=== PATIENT | male | born 1940 | race Two or more races ===

== ENCOUNTER 2021-08-29 17:59 | Inpatient (IN) | payer MEDICARE, OTHER ==
[~2021-08-29] VITALS: Ht 210.8 cm; Wt 90.3 kg
[~2021-08-29 17:59] MED LIST: LISI2.5T47; WARF2TAB
[2021-08-29] MEDS ORDERED: cefTRIAXone 1GM/50ML D5W 50 ML IV ONE (19:45)
[2021-08-29] MEDS ORDERED: methylPREDNISolone SOD SUCC 125 MG/2 ML VL IV ONE (19:45)
[2021-08-29] MEDS ORDERED: AZITHROMYCIN 500MG/ 250ML 250 ML IV ONE (19:45)
[2021-08-29 22:20] LABS: Basophils # (auto) 0 10 ^3/uL (0-0.2); Basophils % (auto) 0.2 % (0.0-2.0); Eosinophils # (auto) 0 10 ^3/uL (0-0.8); Eosinophils % (auto) 0.2 % (0.0-7.0); Hematocrit 40.7 % (41.0-53.0); Hemoglobin 14.2 g/dL (13.5-17.5); Lymphocytes % (auto) 9.9 % (10.0-50.0); Mean Corpuscular Hemoglobin 32.5 pg (28.0-32.0); Mean Corpuscular Hgb Conc. 34.8 g/dL (32.0-36.0); Mean Corpuscular Volume 93.3 fL (80.0-100.0); Monocytes # (auto) 0.8 10 ^3/uL (0-1.3); Monocytes % (auto) 8.1 % (0.0-12.0); Neutrophils % (auto) 81.6 % (37.0-80.0); Red Blood Cells 4.37 10^6/uL (4.5-5.90); Red Cell Distribution Width 14.2 % (11.8-14.3); White Blood Cell 9.8 10^3/uL (4.4-10.8)
[2021-08-29 22:39] LABS: Calcium 8.2 mg/dL (8.5-10.1); Potassium 4.3 mmol/L (3.5-5.1)
[2021-08-29 22:46] LABS: BUN/Creatinine Ratio 22.3; Total Protein 7.8 g/dL (6.4-8.2)
[2021-08-30] MEDS ORDERED: ONDANSETRON HCL 4 MG/2 ML VIAL IV PRN (02:00)
[2021-08-30] MEDS ORDERED: ACETAMINOPHEN 325 MG TAB PO PRN (02:00)
[2021-08-30] MEDS ORDERED: NITROGLYCERIN 0.4 MG SL TAB SL PRN (02:00)
[2021-08-30] MEDS ORDERED: MORPHINE SULFATE INJECTION 2 MG/ML SYRG IV PRN (02:00)
[2021-08-30] MEDS ORDERED: FUROSEMIDE 20 MG/2 ML VIAL IV SCH (06:00)
[2021-08-30] MEDS ORDERED: cefTRIAXone 1GM/50ML D5W 50 ML IV SCH (09:00)
[2021-08-30] MEDS ORDERED: ASPirin 81 mg TAB PO SCH (10:00)
[2021-08-30] MEDS ORDERED: PANTOPRAZOLE 40 MG TAB PO SCH (10:00)
[2021-08-30] MEDS ORDERED: ZINC SULFATE 220mg CAP or TAB PO SCH (10:00)
[2021-08-30] MEDS ORDERED: DexAMETHasone SOD PHOS 10MG/1ML VIAL INJ IV SCH (10:00)
[2021-08-30] MEDS ORDERED: METOPROLOL TARTRATE 50 MG TAB PO SCH (10:00)
[2021-08-30] MEDS ORDERED: ASCORBIC ACID 500 MG TAB PO SCH (10:00)
[2021-08-30] MEDS ORDERED: amLODIPine BESYLATE 5 MG TAB PO SCH (10:00)
[2021-08-30] MEDS ORDERED: AZITHROMYCIN 500MG/ 250ML 250 ML IV SCH (10:00)
[2021-08-30] MEDS ORDERED: APIXABAN 5 MG TAB PO SCH (10:00)
[2021-08-30 13:27] VITALS: BP 138/60
[2021-08-30] MEDS ORDERED: LEVO500T31 PO (13:52)
[2021-08-30] MEDS ORDERED: ATORVASTATIN 20 MG TAB PO SCH (22:00)
== END 2021-08-30 14:06 | disposition home or self-care (01) | DRG 193 ==
LOC: ER 17:59 → EDBD 17:59 → TELE 08-30 01:52
PROVIDERS: ADMIT Nurse Practitioner; ATTEND Hospitalist
DX: J18.9 Pneumonia, unspecified organism (principal); J96.01 Acute respiratory failure with hypoxia; D68.9 Coagulation defect, unspecified; J44.0 Chronic obstructive pulmonary disease with (acute) lower respiratory infection; I50.9 Heart failure, unspecified; I11.0 Hypertensive heart disease with heart failure; I45.4 Nonspecific intraventricular block; I48.91 Unspecified atrial fibrillation; E78.5 Hyperlipidemia, unspecified; I88.9 Nonspecific lymphadenitis, unspecified; Z79.01 Long term (current) use of anticoagulants; Z95.2 Presence of prosthetic heart valve; Z20.822 Contact with and (suspected) exposure to COVID-19
CPT/HCPCS: 36415; 36600; 71045; 80053; 82805; 83880; 84484; 85025; 85379; 87426; 93005; 93306; 96365; 96367; 96375; 99291; G0378; J0696; J1100

== ENCOUNTER 2024-12-29 13:32 | Inpatient (IN) | payer OTHER ==
[~2024-12-29] VITALS: Ht 185.4 cm; Wt 95.8 kg
[~2024-12-29 13:32] MED LIST changes: +LEVO500T31 PO; -WARF2TAB
--- NOTE | 2024-12-29 13:42 | ECG ---
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
--- NOTE | 2024-12-29 13:57 | ED.PDOC ---
Altered Mental Status HPI Comments 84 y.o male with PMHx of AFIB, HTN, presents to the ED via EMS for an evaluation of a syncopal episode today. EMS reports witnessed syncopal episode today while patient was sitting on a chair. Patient reports feeling lightheaded and developed sweats before losing consciousness. EMS reports patient regained consciousness when he was placed on the gurney, is alert and oriented x 4 with no complaints at this time. Patient denies chest pain or SOB prior to after syncopal episode. Per bystanders, patient became pale and cyanotic around his lips while unconscious. There was no trauma. EMS also reports blood pressure of 80 systolic on scene with HR at 40-50. Patient was given IV fluids which brought pressure up to 128/70's. Patient reports not drinking enough fluids this morning as he usually does and last night frequently got up from bed. Patient is on Eliquis. Chief Complaint: Syncope Time Seen by MD: 13:41 Primary Care Provider: BARBIE Reviewed Notes: Nurses Notes, Bean Snapper Notes, Medications, Allergies Allergies: Coded Allergies: NO KNOWN ALLERGIES (Unverified , 12/18/10) Home Meds Active Scripts Levofloxacin (Levaquin) 500 Mg Tab, 500 MG PO DAILY for 10 Days, #10 TAB Prov:KIERA BILLS MD 08/30/21 Reported Medications Lisinopril (Lisinopril) 2.5 Mg Tab 12/18/10 Information Source: Patient, Emergency Med Personnel Mode of Arrival: EMS Severity: Moderate Timing: Hours Duration: Since onset Prehospital treatment: 12 Lead EKG, Casework Specialist, IVF Quality: Decreased Alertness History of: None Associated Signs and Symptoms: Other Past Medical History PAST MEDICAL HISTORY: AFIB, HTN Surgical History: Hernia Repair, PTCA Surgical History (Other): TAVR Family History Family History: Reviewed,noncontributory to illness Social History Smoker: Non-Smoker Alcohol: Denies ETOH Use Drugs: Denies Drug Use Lives In: Home Constitutional: reports: sweats; denies: chills, diaphoresis, fatigue, fever, malaise, weakness, others EENTM: denies: blurred vision, double vision, ear bleeding, ear discharge, ear drainage, ear pain, ear ringing, eye pain, eye redness, hearing loss, mouth pain, mouth swelling, nasal discharge, nose bleeding, nose congestion, nose pain, photophobia, tearing, throat pain, throat swelling, voice changes, others Respiratory: denies: cough, hemoptysis, orthopnea, SOB at rest, shortness of breath, SOB with excertion, stridor, wheezing, others Cardiovascular: reports: lightheadedness; denies: chest pain, dizzy spells, diaphoresis, Dyspnea on exertion, edema, irregular heart beat, left arm pain, palpitations, PND, syncope, others Gastrointestinal: denies: abdomen distended, abdominal pain, blood streaked bowels, constipated, diarrhea, dysphagia, difficulty swallowing, hematemesis, melena, nausea, poor appetite, poor fluid intake, rectal bleeding, rectal pain, vomiting, others Genitourinary: denies: burning, dysuria, flank pain, frequency, hematuria, incontinence, penile discharge, penile sore, pain, testicle pain, testicle swelling, urgency, others Neurological: denies: dizziness, fainting, headache, left sided numbness, left sided weakness, numbness, paresthesia, pre-existing deficit, right sided numbness, right sided weakness, seizure, speech problems, tingling, tremors, weakness, others Musculoskeletal: denies: back pain, gout, joint pain, joint swelling, muscle pain, muscle stiffness, neck pain, others Integumetry: denies: bruises, change in color, change in hair/nails, dryness, laceration, lesions, lumps, rash, wounds, others Allergic/Immunocompromised: denies: Difficulty Healing, Frequent Infections, Hives, Itching, others Hematologic/Lymphatic: denies: anemia, blood clots, easy bleeding, easy bruising, swollen glands, others Endocrine: denies: excessive hunger, excessive sweating, excessive thirst, excessive urination, flushing, intolerance to cold, intolerance to heat, unexplained weight gain, unexplained weight loss, others Psychiatric: denies: anxiety, bipolar disorder, depression, hopeless, panic disorder, schizophrenia, sleepless, suicidal, others All Other Systems: Reviewed and Negative Physical Exam General Appearance: No Apparent Distress HEENT: Other (Pupils and face symmetric. Moist mucous membranes.) Neck: Full Range of Motion, Normal Inspection Respiratory: Lungs Clear, No Accessory Muscle Use, No Respiratory Distress, Normal Breath Sounds Cardiovascular: Bradycardia, Irregular, No Edema, No JVD Breast Exam: Deferred Gastrointestinal: Non Tender, Soft Genitalia: Deferred Pelvic: Deferred Rectal: Deferred Extremities: Normal inspection, Normal range of motion, Non-tender, No pedal edema Neurologic: Alert (Oriented x4), Normal Affect, Normal Mood, Other (Able to stand and transfer from pbx installer gurney to wheelchair unassisted.) Cerebellar Function: NOT DONE Reflexes: NOT DONE Skin: Dry, Normal Color, Warm Lymphatic: NOT DONE EKG EKG : Comments AFib with slow ventricular response, rate 39, QRS prolonged at 130, QTC normal, left axis deviation, old inferior or anteroseptal infarct, nonspecific T change s. Was a procedure done? Was a procedure done?: No Differential Diagnosis (ALOC) Differential Diagnosis: Dehydration, Encephalopathy, Hypoxemia, Seizure, Closed Head Injury, CVA, Mass Lesion, SAH, Heart Failure, Renal Failure, Other (Hypovolemia, orthostasis, bradycardia, mi, vasovagal, anemia, among others) X-Ray, Labs, Meds, VS Vital Signs Date Time Temp Pulse Resp B/P (MAP) Pulse Ox O2 Delivery O2 Flow Rate FiO2 12/29/24 16:08 62 12/29/24 14:58 96.3 61 16 140/69 (92) 95 96.3 12/29/24 14:58 Room Air* 0 21 12/29/24 13:45 97.9 52 18 123/68 (86) 98 97.9 12/29/24 13:35 39 Lab Test 12/29/24 16:05 12/29/24 15:18 12/29/24 14:14 Range/Units Urine Color Light-yellow Yellow Urine Clarity Clear Clear Urine pH 5.5 5.0-9.0 Urine Specific [place] 1.010 1.001-1.035 Urine Protein Negative Negative Urine Ketones Negative Negative Urine Blood Negative Negative /uL Urine Nitrite Negative Negative Urine Bilirubin Negative Negative Urine Urobilinogen Normal Negative mg/dL Urine Leukocyte Esterase Negative Negative /uL Urine RBC None seen 0 - 3 /hpf Urine Microscopic WBC < 1 0-3 /HPF Urine Squamous Epithelial Cells None seen <5 /hpf Urine Bacteria None seen None Seen /hpf Urine Hyaline Casts Few 0 - 2 /lpf Urine Glucose Normal Normal mg/dL Troponin I High Sensitivity 9 10 </=54 ng/L White Blood Count 5.5 4.4-10.8 10^3/uL Red Blood Count 4.48 L 4.5-5.90 10^6/uL Hemoglobin 14.5 13.5-17.5 g/dL Hematocrit 41.3 41.0-53.0 % Mean Corpuscular Volume 92.3 80.0-100.0 fL Mean Corpuscular Hemoglobin 32.4 H 28.0-32.0 pg Mean Corpuscular Hemoglobin Concent 35.1 32.0-36.0 g/dL Red Cell Distribution Width 14.6 H 11.8-14.3 % Platelet Count 174 140-450 10^3/uL Mean Platelet Volume 7.6 6.9-10.8 fL Neutrophils (%) (Auto) 74.2 37.0-80.0 % Lymphocytes (%) (Auto) 18.2 10.0-50.0 % Monocytes (%) (Auto) 6.0 0.0-12.0 % Eosinophils (%) (Auto) 1.3 0.0-7.0 % Basophils (%) (Auto) 0.3 0.0-2.0 % Neutrophils # (Auto) 4.1 1.6-8.6 10 ^3/uL Lymphocytes # (Auto) 1.0 0.4-5.4 10 ^3/uL Monocytes # (Auto) 0.3 0-1.3 10 ^3/uL Eosinophils # (Auto) 0.1 0-0.8 10 ^3/uL Basophils # (Auto) 0 0-0.2 10 ^3/uL Nucleated Red Blood Cells 0.1 % Sodium Level 143 136-145 mmol/L Potassium Level 4.6 3.5-5.1 mmol/L Chloride Level 108 H 98-107 mmol/L Carbon Dioxide Level 27 20-31 mmol/L Anion Gap 8 5-15 Blood Urea Nitrogen 26 H 9-23 mg/dL Creatinine 1.39 H 0.700-1.30 mg/dL Glomerular Filtration Rate Calc 50 >90 mL/min BUN/Creatinine Ratio 18.7 10.0-20.0 Serum Glucose 118 H 74-106 mg/dL Calcium Level 9.8 8.7-10.4 mg/dL Total Bilirubin 1.1 H 0.2-1.0 mg/dL Aspartate Amino Transferase (AST) 16 13-40 U/L Alanine Aminotransferase (ALT) 12 7-40 U/L Alkaline Phosphatase 77 46-116 U/L B-Type Natriuretic Peptide 176.31 0-100 pg/mL Total Protein 7.1 5.7-8.2 g/dL Albumin 4.7 3.2-4.8 g/dL CLINICAL INFORMATION: 84 years old, Male; syncope. TECHNIQUE: Axial imaging was obtained through the brain without contrast. Coronal and sagittal reformatted images were obtained, reviewed, and stored. Images were reviewed in brain and bone windows. All CT scans at this medical facility are performed using dose modulation techniques as appropriate to a performed exam including the following: Automated exposure control was utilized; adjustment of the MA and/or KV according to patient size; and use of iterative reconstruction technique. CTDIvol = 60.57 mGy DLP = 1071.14 mGy-cm COMPARISON: None FINDINGS: There is no acute intracranial hemorrhage. No mass effect or midline shift. Scattered areas of hypoattenuation are seen in the periventricular and subcortical white matter, which are nonspecific but most likely sequelae of small vessel ischemic disease. Likely physiologic calcification along the falx cerebri. The ventricles and sulci are within normal limits in size for age. Basal cisterns are patent. The calvarium is unremarkable. Paranasal sinuses and mastoid air cells are clear. IMPRESSION: 1. No CT evidence of acute intracranial abnormality. 2. Nonacute findings as described above. CHEST RADIOGRAPH Indication: syncope Technique: Single frontal view of the chest was obtained Comparison: CHEST PORTABLE on DOS: 08/29/21 FINDINGS: Lines and Tubes: None Lungs: No focal consolidation. Pleura: No effusion. No pneumothorax. Cardiomediastinal contours: Mild cardiomegaly with mild atherosclerotic calcification and uncoiling of the aorta. Cardiac valvular replacement is noted. Bones: No acute osseous abnormality. IMPRESSION: No acute cardiopulmonary disease. X-Ray, Labs, Meds, VS Comment 84-year-old male with a history of AFib, CAD, cardiac stent, TAVR brought in by EMS status post syncopal episode. Vitals remarkable for heart rate 39 Exam remarkable for bradycardia irregularly irregular rhythm Rhythm strip independently interpreted by me: AFib, rate 39 CT head and chest x-ray unremarkable CBC unremarkable, metabolic panel remarkable for BUN 26, creatinine 1.39, BNP 176.3, troponin negative Patient received 1 L 0.9 normal saline IV bolus administered by EMS On re-evaluation, patient is alert, oriented and neurologically intact. Heart r ate is 52, blood pressure 132/68 Plan is to admit the patient for observation and Cardiology evaluation. Time of 1ST Reevaluation: 13:50 Reevaluation 1ST: Unchanged Patient Education/Counseling: Diagnosis, Treatment, Prognosis Family Education/Counseling: No Family Present Departure 1 Departure Time of Disposition: 14:48 Impression: Primary Impression: Syncope Qualified Codes: R55 - Syncope and collapse Additional Impressions: Symptomatic bradycardia Atrial fibrillation with slow ventricular response Disposition: ADMITTED INPATIENT Admit to: Tele Condition: Guarded Critical Care Note Critical Care Time?: Yes Critical care comment: Critical care time including multiple bedside re-evaluations, review of lab and imaging studies, and discussion of the case with the admitting provider. Patient is high risk for hemodynamic and/or neurologic decompensation. Stability Stability form required: No Heart Score Heart Score: Heart Score Response (Comments) Value History N/A 0 EKG N/A 0 Age N/A 0 Risk Factors N/A 0 Troponin N/A 0 Total 0 I personally scribed for EDIS DUNHAM MD ([email or web address]) on 12/29/24 at 13:57. Electronically submitted by Lauren Waterman ([facility]). I personally scribed for EDIS [facility]UNHAM MD ([facility] on 12/29/24 at 14:36. Electronically submitted by Lauren Waterman ([facility]). EDIS DUNHAM MD December 29, 2024 13:57
--- NOTE | 2024-12-29 14:18 | DVH ---
CHEST RADIOGRAPH Indication: syncope Technique: Single frontal view of the chest was obtained Comparison: CHEST PORTABLE on DOS: 08/29/21 FINDINGS: Lines and Tubes: None Lungs: No focal consolidation. Pleura: No effusion. No pneumothorax. Cardiomediastinal contours: Mild cardiomegaly with mild atherosclerotic calcification and uncoiling o f the aorta. Cardiac valvular replacement is noted. Bones: No acute osseous abnormality. IMPRESSION: No acute cardiopulmonary disease.
[2024-12-29 14:25] LABS: Basophils # (auto) 0 10 ^3/uL (0-0.2); Basophils % (auto) 0.3 % (0.0-2.0); Eosinophils # (auto) 0.1 10 ^3/uL (0-0.8); Eosinophils % (auto) 1.3 % (0.0-7.0); Hematocrit 41.3 % (41.0-53.0); Hemoglobin 14.5 g/dL (13.5-17.5); Lymphocytes % (auto) 18.2 % (10.0-50.0); Mean Corpuscular Hemoglobin 32.4 pg (28.0-32.0); Mean Corpuscular Hgb Conc. 35.1 g/dL (32.0-36.0); Mean Corpuscular Volume 92.3 fL (80.0-100.0); Monocytes # (auto) 0.3 10 ^3/uL (0-1.3); Neutrophils # (auto) 4.1 10 ^3/uL (1.6-8.6); Neutrophils % (auto) 74.2 % (37.0-80.0); Nucleated Red Blood Cells % 0.1 %; Platelet Count (auto) 174 10^3/uL (140-450); Red Blood Cells 4.48 10^6/uL (4.5-5.90); Red Cell Distribution Width 14.6 % (11.8-14.3); White Blood Cell 5.5 10^3/uL (4.4-10.8)
--- NOTE | 2024-12-29 14:27 | DVH ---
CLINICAL INFORMATION: 84 years old, Male; syncope. TECHNIQUE: Axial imaging was obtained through the brain without contrast. Coronal and sagittal reform atted images were obtained, reviewed, and stored. Images were reviewed in brain and bone windows. Al l CT scans at this medical facility are performed using dose modulation techniques as appropriate to a performed exam including the following: Automated exposure control was utilized; adjustment of the MA and/or KV according to patient size; and use of iterative reconstruction technique. CTDIvol = 60.5 7 mGy DLP = 1071.14 mGy-cm COMPARISON: None FINDINGS: There is no acute intracranial hemorrhage. No mass effect or midline shift. Scattered areas of hypoattenuation are seen in the periventricular and subcortical white matter, which are nonspecif ic but most likely sequelae of small vessel ischemic disease. Likely physiologic calcification along the falx cerebri. The ventricles and sulci are within normal limits in size for age. Basal cisterns a re patent. The calvarium is unremarkable. Paranasal sinuses and mastoid air cells are clear. IMPRESSION: 1. No CT evidence of acute intracranial abnormality. 2. Nonacute findings as described above.
[2024-12-29 14:41] LABS: Alanine Aminotransferase 12 U/L (7-40); Albumin 4.7 g/dL (3.2-4.8); Alkaline Phosphatase 77 U/L (46-116); Anion Gap 8 (5-15); Aspartate Aminotransferase 16 U/L (13-40); BUN/Creatinine Ratio 18.7 (10.0-20.0); Calcium 9.8 mg/dL (8.7-10.4); Carbon Dioxide 27 mmol/L (20-31); Potassium 4.6 mmol/L (3.5-5.1); Sodium 143 mmol/L (136-145); Total Protein 7.1 g/dL (5.7-8.2)
[2024-12-29 14:42] LABS: Bilirubin, Total 1.1 mg/dL (0.2-1.0); Blood Urea Nitrogen 26 mg/dL (9-23); Chloride 108 mmol/L (98-107); Glucose 118 mg/dL (74-106)
[2024-12-29] MEDS ORDERED: NITROGLYCERIN 0.4 MG SL TAB SL PRN (16:30)
[2024-12-29] MEDS ORDERED: HYDROcodone-ACET 5/325MG TAB PO PRN (16:30)
[2024-12-29] MEDS ORDERED: MORPHINE SULFATE INJ 2 MG/ml SYRG IV PRN (16:30)
[2024-12-29] MEDS ORDERED: ACETAMINOPHEN 325 MG TAB PO PRN (16:30)
--- NOTE | 2024-12-29 16:40 | DVHHP2 ---
History of Present Illness History of Present Illness 84 y.o male with PMHx of AFIB, HTN, presents to the ED via EMS for an evaluation of a syncopal episode today. EMS reports witnessed syncopal episode today while patient was sitting on a chair. Patient reports feeling lightheaded and developed sweats before losing consciousness. EMS reports patient regained consciousness when he was placed on the gurney, is alert and oriented x 4 with no complaints at this time. Patient denies chest pain or SOB prior to after syncopal episode. Per bystanders, patient became pale and cyanotic around his lips. EMS also reports blood pressure of 80 systolic on scene with HR at 40-50. Patient was given IV fluids which brought pressure up to 128/70's. Patient reports not drinking enough fluids this morning as he usually does and last night frequently got up from bed. Patient is on Eliquis. 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 Once sitting down he asked his help to get him some thing to drink. While waiting to get his drink he started to syncopized and was witnessed to be in and out of consciousness for approximately 10 minutes. EMS was called and on arrival found patient to be pale, cyanotic, bradycardic, hypotensive with systolic BP in 80s and heart rate low 40s. Patient was given IV fluids by EMS which improved blood pressures and made him come out of syncope symptoms and was alert and oriented again. On bedside eval patient heart rate is in 60s and blood pressure is adequate. Patient is conversing without difficulty and believes he was dehydrated because of taking too much Lasix. Review of Systems Review of Systems As HPI Allergies: Coded Allergies: NO KNOWN ALLERGIES (Unverified , 12/18/10) Exam Vital Signs Vital Signs Date Time Temp Pulse Resp B/P (MAP) Pulse Ox O2 Delivery O2 Flow Rate FiO2 12/29/24 14:58 96.3 61 16 140/69 (92) 95 96.3 12/29/24 14:58 Room Air* 0 21 Exam GEN: Healthy appearing, well-developed, NAD. HEENT: NC/AT; MMM. CV: RRR, no m/r/g. LUNGS: CTAB, no w/r/c. ABD: Soft, NT/ND, NBS, no masses or organomegaly. EXT: skin Warm, well perfused. no rashes. No clubbing, cyanosis, or edema. NEURO: Ambulating with no limitations. No focal deficits. Labs/Xrays Labs Test 12/29/24 15:18 12/29/24 14:14 Range/Units Troponin I High Sensitivity 9 </=54 ng/L White Blood Count 5.5 4.4-10.8 10^3/uL Red Blood Count 4.48 L 4.5-5.90 10^6/uL Hemoglobin 14.5 13.5-17.5 g/dL Hematocrit 41.3 41.0-53.0 % Mean Corpuscular Volume 92.3 80.0-100.0 fL Mean Corpuscular Hemoglobin 32.4 H 28.0-32.0 pg Mean Corpuscular Hemoglobin Concent 35.1 32.0-36.0 g/dL Red Cell Distribution Width 14.6 H 11.8-14.3 % Platelet Count 174 140-450 10^3/uL Mean Platelet Volume 7.6 6.9-10.8 fL Neutrophils (%) (Auto) 74.2 37.0-80.0 % Lymphocytes (%) (Auto) 18.2 10.0-50.0 % Monocytes (%) (Auto) 6.0 0.0-12.0 % Eosinophils (%) (Auto) 1.3 0.0-7.0 % Basophils (%) (Auto) 0.3 0.0-2.0 % Neutrophils # (Auto) 4.1 1.6-8.6 10 ^3/uL Lymphocytes # (Auto) 1.0 0.4-5.4 10 ^3/uL Monocytes # (Auto) 0.3 0-1.3 10 ^3/uL Eosinophils # (Auto) 0.1 0-0.8 10 ^3/uL Basophils # (Auto) 0 0-0.2 10 ^3/uL Nucleated Red Blood Cells 0.1 % Sodium Level 143 136-145 mmol/L Potassium Level 4.6 3.5-5.1 mmol/L Chloride Level 108 H 98-107 mmol/L Carbon Dioxide Level 27 20-31 mmol/L Anion Gap 8 5-15 Blood Urea Nitrogen 26 H 9-23 mg/dL Creatinine 1.39 H 0.700-1.30 mg/dL Glomerular Filtration Rate Calc 50 >90 mL/min BUN/Creatinine Ratio 18.7 10.0-20.0 Serum Glucose 118 H 74-106 mg/dL Calcium Level 9.8 8.7-10.4 mg/dL Total Bilirubin 1.1 H 0.2-1.0 mg/dL Aspartate Amino Transferase (AST) 16 13-40 U/L Alanine Aminotransferase (ALT) 12 7-40 U/L Alkaline Phosphatase 77 46-116 U/L B-Type Natriuretic Peptide 176.31 0-100 pg/mL Total Protein 7.1 5.7-8.2 g/dL Albumin 4.7 3.2-4.8 g/dL Assessment/Plan Assessment/Plan Syncope due to below Symptomatic bradycardia Hypotension due to intravascular volume depletion Intravascular volume depletion TERESSA due to VMN History of AFib with bradycardia, no cardiac device Chronic anticoagulation with apixaban DOAC History TAVR History CAD with stents Hypertension ? CHF Hypokalemia Plan: Keep on tele Hold any beta-blockers / christiano blocking drugs -continue home amlodipine, losartan (amlodipine 10, low-dose losartan since we do not know the dose) Complete med rec Hold diuretics Daily labs monitor potassium Cardiology consult - primary conversion man is dr Varghese bernal TERESSA due to VMN with creatinine 1.39 slow fluid hydration Diet cardiac DVT prophylaxis ambulatory GI prophylaxis tolerating p.o. Tele Full code Plan discussed with: Patient, Spouse Date of Service: December 29, 2024 Billing Provider: LATISHA WHEATLEY MD Common Visit Codes: 77828-[id number] INP/OBS CARE (HIGH) Secondary Visit Codes: 27292-[id number] CARE PLAN 30 MINUTES LATISHA WHEATLEY MD December 29, 2024 16:39
[2024-12-29 16:56] LABS: Urine Bacteria None Seen /hpf (None Seen)
[2024-12-29] MEDS: LACTATED RINGER'S 1,000 ML IV ONE (17:00)
[2024-12-29 17:05] LABS: Urine Blood Negative /uL (Negative); Urine Clarity Clear (Clear); Urine Color Light-Yellow (Yellow); Urine Hyaline Cast FEW /lpf (0 - 2); Urine Protein, UAD Negative (Negative); Urine Squamous Epithelial Cell None Seen /hpf (<5); Urine Urobilinogen Normal (Negative); Urine WBC < 1 /HPF (0-3); Urine pH 5.5 (5.0-9.0)
[2024-12-29 19:37] VITALS: PULSE 66; O2SAT 95
[2024-12-29 21:05] VITALS: BP 140/71; PULSE 59; RESP 18; TEMP 97.6; O2SAT 96
[2024-12-29 21:29] VITALS: BP 140/71; PULSE 59; PULSE 96; RESP 16; TEMP 97.6; O2SAT 96
[2024-12-30] MEDS ORDERED: HYDR-3682 PO (00:38)
[2024-12-30] MEDS ORDERED: CHOL20007 PO (00:38)
[2024-12-30] MEDS ORDERED: APIX5TAB PO (00:38)
[2024-12-30] MEDS ORDERED: LOSA-535 PO (00:38)
[2024-12-30] MEDS ORDERED: B-CO1TAB8 PO (00:38)
[2024-12-30] MEDS ORDERED: POTA-36 PO (00:38)
[2024-12-30] MEDS ORDERED: AMLO1TAB23 PO (00:38)
[2024-12-30] MEDS ORDERED: FURO40TA4 PO (00:38)
[2024-12-30 01:00] VITALS: BP 140/60; PULSE 53; RESP 18; TEMP 97.7; O2SAT 96
[2024-12-30 05:00] VITALS: BP 154/64; PULSE 50; RESP 16; TEMP 98.2; O2SAT 95
[2024-12-30 06:38] VITALS: BP 134/74
[2024-12-30 07:00] LABS: Basophils # (auto) 0 10 ^3/uL (0-0.2); Basophils % (auto) 0.4 % (0.0-2.0); Eosinophils # (auto) 0.1 10 ^3/uL (0-0.8); Eosinophils % (auto) 3.5 % (0.0-7.0); Hematocrit 38.4 % (41.0-53.0); Hemoglobin 13.5 g/dL (13.5-17.5); Lymphocytes # (auto) 1.2 10 ^3/uL (0.4-5.4); Lymphocytes % (auto) 37.2 % (10.0-50.0); Mean Corpuscular Hemoglobin 32.3 pg (28.0-32.0); Mean Corpuscular Hgb Conc. 35.1 g/dL (32.0-36.0); Mean Corpuscular Volume 91.9 fL (80.0-100.0); Monocytes # (auto) 0.3 10 ^3/uL (0-1.3); Monocytes % (auto) 10.2 % (0.0-12.0); Neutrophils # (auto) 1.6 10 ^3/uL (1.6-8.6); Neutrophils % (auto) 48.7 % (37.0-80.0); Nucleated Red Blood Cells % 0.2 %; Platelet Count (auto) 161 10^3/uL (140-450); Red Blood Cells 4.17 10^6/uL (4.5-5.90); Red Cell Distribution Width 14.5 % (11.8-14.3); White Blood Cell 3.3 10^3/uL (4.4-10.8)
[2024-12-30 07:11] LABS: Albumin 4.1 g/dL (3.2-4.8); Alkaline Phosphatase 67 U/L (46-116); Anion Gap 6 (5-15); BUN/Creatinine Ratio 17.2 (10.0-20.0); Blood Urea Nitrogen 20 mg/dL (9-23); Calcium 9.3 mg/dL (8.7-10.4); Carbon Dioxide 27 mmol/L (20-31); Glucose 95 mg/dL (74-106); Potassium 4.3 mmol/L (3.5-5.1); Sodium 143 mmol/L (136-145); Total Protein 6.4 g/dL (5.7-8.2)
[2024-12-30 07:12] LABS: Bilirubin, Total 1.1 mg/dL (0.2-1.0)
[2024-12-30 07:15] LABS: Alanine Aminotransferase < 9 U/L (7-40); Aspartate Aminotransferase 13 U/L (13-40); Chloride 110 mmol/L (98-107)
[2024-12-30 08:00] VITALS: PULSE 42; PULSE 56; RESP 17; O2SAT 96
[2024-12-30 09:00] VITALS: BP 129/64; PULSE 56; RESP 17; TEMP 98.1; O2SAT 96
[2024-12-30] MEDS: amLODIPine BESYLATE 5 MG TAB PO SCH (09:27)
[2024-12-30] MEDS: LOSARTAN POTASSIUM 25 MG TAB PO SCH (09:27)
--- NOTE | 2024-12-30 15:10 | DVHINCON2 ---
Date Seen: December 30, 2024 Referring Physician MD Jah Reason for Consultation Syncope rule out sick sinus syndrome History of Present Illness This is an 84-year-old male who presented to the emergency room via EMS with a chief complaint of syncope. 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 Upon EMS arrival he was found with a systolic blood pressure in the 80s mmHg and a HR in the 40s bpm. He was administered NS IV bolus x 1L with blood pressure improvement. The patient reports poor oral hydration during the past few days. Upon arrival to the emergency room he underwent a 12 lead electrocardiogram revealing an atrial fibrillation rhythm with slow ventricular rate at 39 bpm. monitor and storage bin tender reviewed revealing intermittent bradycardia with a HR as low as 37 bpm. The patient endorses a similar event approximately 8 years ago when he was found to be hypovolemic and bradycardic. At that time, it appears he was given atropine IV in addition to IVF en route to the hospital. Follows up in the outpatient setting with primary strategic partnership specialist Dr. Trimble with upcoming appointment tomorrow. Denies undergoing an event monitor in the past. Home medications do not include AV christiano blocking agents. Significant medical history includes persistent atrial fibrillation on Eliquis therapy, status post TAVR with bovine transcatheter heart valve at [facility] in 2020, congestive heart failure, hypertension, and dyslipidemia. Of note, the patient denies any history of PCIs with stent placement neither antiplatelet therapy. Past Medical History Past medical history reviewed. No other significant than mentioned above. Past Surgical History TAVR, 2020 Left inguinal herniorrhaphy Family History: Cardiovascular disease G8 FATHER G8 BROTHER G8 BROTHER Family History Family history reviewed. Social History Denies the use of illicit drugs, alcohol, or tobacco use. Allergies: Coded Allergies: NO KNOWN ALLERGIES (Unverified , 12/18/10) Home Meds Active Scripts Levofloxacin (Levaquin) 500 Mg Tab, 500 MG PO DAILY for 10 Days, #10 TAB Prov:KIERA BILLS MD 08/30/21 Reported Medications Hydroxyzine Hcl (Hydroxyzine Hcl) 25 Mg Tab, 1 TAB PO DAILY, #60 TAB 12/30/24 Cholecalciferol (VITAMIN D3) 2,000 Unit Tab, 1 TAB PO DAILY, #30 TAB 5 Refills 12/30/24 B-Complex W/Biotin & Folic Aci (Super B-Complex) 1 Tab Tab, 1 TAB PO DAILY, TAB 12/30/24 Furosemide (Furosemide) 40 Mg Tab, 1 TAB PO DAILY, #30 TAB 5 Refills 12/30/24 Potassium Chloride (POTASSIUM CHLORIDE CR) 10 Meq Tb, 10 MEQ PO BID, TAB 12/30/24 Amlodipine Besylate (Amlodipine Besylate) 10 Mg Tab, 1 TAB PO DAILY, #30 TAB 5 Refills 12/30/24 Losartan Potassium (Losartan Potassium) 100 Mg Tab, 1 TAB PO DAILY, #30 TAB 5 Refills 12/30/24 Apixaban Base (ELIQUIS) 5 Mg Tab, 5 MG PO BID, TAB 12/30/24 Lisinopril (Lisinopril) 2.5 Mg Tab 12/18/10 Home Meds Home medications reviewed. Current Medications Current Medications Medications (Trade) Dose Ordered Sig/Keagan Route PRN Reason Start Time Stop Time Status Last Admin Acetaminophen/ Hydrocodone Bitart ([place] 5/325MG Tab) 1 tab Q4HP PRN PO MODERATE PAIN (4-6 PAIN SCALE) 12/29/24 16:30 Acetaminophen (Tylenol Tablet) 650 mg Q6HP PRN PO PAIN SCALE 1-3 OR TEMP>100.4 12/29/24 16:30 Nitroglycerin (Ntrostat Sublingual) 0.4 mg Q5MINP PRN SL FOR CHEST PAIN 12/29/24 16:30 Morphine Sulfate 2 mg Q30M PRN IV FOR CHEST PAIN 12/29/24 16:30 Losartan Potassium (Cozaar Tablet) 25 mg DAILY PO 12/30/24 10:00 12/30/24 09:27 Amlodipine Besylate (Norvasc Tablet) 10 mg DAILY PO 12/30/24 10:00 12/30/24 09:27 Review of Systems Constitutional: No symptom reported Ears, Nose, & Throat: No symptom reported Eyes: No symptom reported Neurological: Syncope Pulmonary/Respiratory: No symptom reported Cardiovascular: No symptom reported Gastrointestinal: No symptom reported Genitourinary: No symptom reported Musculoskeletal: No symptom reported Skin: No symptom reported Psychiatric: No symptom reported Endocrine: No symptom reported Hemotologic/Lymphatic: No symptom reported Vital Signs Vital Signs Date Time Temp Pulse Resp B/P (MAP) Pulse Ox O2 Delivery O2 Flow Rate FiO2 12/30/24 09:27 128/64 12/30/24 09:00 98.1 56 17 96 98.1 12/30/24 08:00 Room Air* 0 21 Physical Exam General Appearance: Cooperative. Well developed. Well nourished. In no acute distress Head Exam: Normal inspection Neck Exam: Normal inspection. Non-tender. Normal alignment Pulmonary/Respiratory: Chest non-tender. Clear bilateral breath sounds Cardiovascular/Chest: Irregularly irregular rate and rhythm. AFib with intermi ttent slow ventricular response. No murmurs. No JVD. Peripheral Pulses: 2+ Radial (R). 2+ Radial (L). 2+ Pedal (R). 2+ Pedal (L) Abdominal Exam: Normal bowel sounds. Soft. Nontender. No hepatospenomegaly. No masses Ankle Exam: Negative ankle edema Lower extremities: Negative lower extremity edema Neuro/Mental Status: A&O x4. Coherent Thoughts/Psych: Normal thought pattern. Appropriate mood and affect. Good judgement and insight Appearance: In no acute distress Skin Exam: Normal inspection. Normal color. Warm. Dry Labs/Diagnostic Data Labs Test 12/30/24 06:12 12/29/24 17:12 12/29/24 16:05 12/29/24 14:14 Range/Units White Blood Count 3.3 #L 4.4-10.8 10^3/uL Red Blood Count 4.17 L 4.5-5.90 10^6/uL Hemoglobin 13.5 13.5-17.5 g/dL Hematocrit 38.4 L 41.0-53.0 % Mean Corpuscular Volume 91.9 80.0-100.0 fL Mean Corpuscular Hemoglobin 32.3 H 28.0-32.0 pg Mean Corpuscular Hemoglobin Concent 35.1 32.0-36.0 g/dL Red Cell Distribution Width 14.5 H 11.8-14.3 % Platelet Count 161 140-450 10^3/uL Mean Platelet Volume 7.9 6.9-10.8 fL Neutrophils (%) (Auto) 48.7 37.0-80.0 % Lymphocytes (%) (Auto) 37.2 10.0-50.0 % Monocytes (%) (Auto) 10.2 0.0-12.0 % Eosinophils (%) (Auto) 3.5 0.0-7.0 % Basophils (%) (Auto) 0.4 0.0-2.0 % Neutrophils # (Auto) 1.6 1.6-8.6 10 ^3/uL Lymphocytes # (Auto) 1.2 0.4-5.4 10 ^3/uL Monocytes # (Auto) 0.3 0-1.3 10 ^3/uL Eosinophils # (Auto) 0.1 0-0.8 10 ^3/uL Basophils # (Auto) 0 0-0.2 10 ^3/uL Nucleated Red Blood Cells 0.2 % Sodium Level 143 136-145 mmol/L Potassium Level 4.3 3.5-5.1 mmol/L Chloride Level 110 H 98-107 mmol/L Carbon Dioxide Level 27 20-31 mmol/L Anion Gap 6 5-15 Blood Urea Nitrogen 20 9-23 mg/dL Creatinine 1.16 0.700-1.30 mg/dL Glomerular Filtration Rate Calc 62 >90 mL/min BUN/Creatinine Ratio 17.2 10.0-20.0 Serum Glucose 95 74-106 mg/dL Calcium Level 9.3 8.7-10.4 mg/dL Total Bilirubin 1.1 H 0.2-1.0 mg/dL Aspartate Amino Transferase (AST) 13 13-40 U/L Alanine Aminotransferase (ALT) < 9 7-40 U/L Alkaline Phosphatase 67 46-116 U/L Total Protein 6.4 5.7-8.2 g/dL Albumin 4.1 3.2-4.8 g/dL Troponin I High Sensitivity 9 </=54 ng/L Urine Color Light-yellow Yellow Urine Clarity Clear Clear Urine pH 5.5 5.0-9.0 Urine Specific [place] 1.010 1.001-1.035 Urine Protein Negative Negative Urine Ketones Negative Negative Urine Blood Negative Negative /uL Urine Nitrite Negative Negative Urine Bilirubin Negative Negative Urine Urobilinogen Normal Negative mg/dL Urine Leukocyte Esterase Negative Negative /uL Urine RBC None seen 0 - 3 /hpf Urine Microscopic WBC < 1 0-3 /HPF Urine Squamous Epithelial Cells None seen <5 /hpf Urine Bacteria None seen None Seen /hpf Urine Hyaline Casts Few 0 - 2 /lpf Urine Glucose Normal Normal mg/dL B-Type Natriuretic Peptide 176.31 0-100 pg/mL Assessment Syncope and collapse Hypovolemic shock secondary to acute dehydration Atrial fibrillation with slow ventricular rate (on Eliquis) Sick sinus syndrome with intermittent bradyarrhythmia Status post TAVR Hypertension Dyslipidemia TERESSA, resolved Plan/Recommendation (Dr. Trujillo) The patient with atrial fibrillation presents with sick sinus syndrome. He was offered a permanent pacemaker implantation given intermittent slow ventricular rate and associated syncopal event. The patient is adamant to undergo any invasive cardiac procedures and prefers to follow up with his primary strategic partnership specialist, Dr. Trimble, with whom he has an appointment tomorrow. He understands the risks of withholding from recommended procedure including further syncopal events, intracranial hemorrhagic events from falls, and even . Primary care team notified of patient's wishes, Dr. Tyson. Kindly call if patient willing to stay for further cardiology work-up. Thank you for allowing us to participate in this patient's care. Critical care time: 40 min. This medical document was created using an electronic medical record system with voice recognition software and computerized dictation system. Although this document has been carefully reviewed, there might still be some phonetic and typographical errors. Occasional wrong-word or ``sound-alike substitutions may have occurred due to the inherent limitations of voice recognition software. These areas are purely typographical due to imperfections of the software programs and do not reflect any compromise in the patient's medical care. Please read the chart carefully and recognize, using context, where these substitutions have occurred. Plan discussed with: Patient, Spouse, Other NYHA Physical activity limitations: NA Date of Service: December 30, 2024 Billing Provider: ASHLEY HYDE Cardiology Common Codes: 54223-[id number] CARE 30-74 MIN ASHLEY HYDE December 30, 2024 15:10
--- NOTE | 2024-12-30 15:18 | DVHDS2 ---
Discharge Summary Date of Admission December 29, 2024 at 16:24 Labs/Diagnostic Data: Laboratory Results Test 12/30/24 06:12 12/29/24 17:12 12/29/24 16:05 12/29/24 14:14 White Blood Count 3.3 10^3/uL (4.4-10.8) Red Blood Count 4.17 10^6/uL (4.5-5.90) Hemoglobin 13.5 g/dL (13.5-17.5) Hematocrit 38.4 % (41.0-53.0) Mean Corpuscular Volume 91.9 fL (80.0-100.0) Mean Corpuscular Hemoglobin 32.3 pg (28.0-32.0) Mean Corpuscular Hemoglobin Concent 35.1 g/dL (32.0-36.0) Red Cell Distribution Width 14.5 % (11.8-14.3) Platelet Count 161 10^3/uL (140-450) Mean Platelet Volume 7.9 fL (6.9-10.8) Neutrophils (%) (Auto) 48.7 % (37.0-80.0) Lymphocytes (%) (Auto) 37.2 % (10.0-50.0) Monocytes (%) (Auto) 10.2 % (0.0-12.0) Eosinophils (%) (Auto) 3.5 % (0.0-7.0) Basophils (%) (Auto) 0.4 % (0.0-2.0) Neutrophils # (Auto) 1.6 10 ^3/uL (1.6-8.6) Lymphocytes # (Auto) 1.2 10 ^3/uL (0.4-5.4) Monocytes # (Auto) 0.3 10 ^3/uL (0-1.3) Eosinophils # (Auto) 0.1 10 ^3/uL (0-0.8) Basophils # (Auto) 0 10 ^3/uL (0-0.2) Nucleated Red Blood Cells 0.2 % Sodium Level 143 mmol/L (136-145) Potassium Level 4.3 mmol/L (3.5-5.1) Chloride Level 110 mmol/L (98-107) Carbon Dioxide Level 27 mmol/L (20-31) Anion Gap 6 (5-15) Blood Urea Nitrogen 20 mg/dL (9-23) Creatinine 1.16 mg/dL (0.700-1.30) Glomerular Filtration Rate Calc 62 mL/min (>90) BUN/Creatinine Ratio 17.2 (10.0-20.0) Serum Glucose 95 mg/dL (74-106) Calcium Level 9.3 mg/dL (8.7-10.4) Total Bilirubin 1.1 mg/dL (0.2-1.0) Aspartate Amino Transferase (AST) 13 U/L (13-40) Alanine Aminotransferase (ALT) < 9 U/L (7-40) Alkaline Phosphatase 67 U/L (46-116) Total Protein 6.4 g/dL (5.7-8.2) Albumin 4.1 g/dL (3.2-4.8) Troponin I High Sensitivity 9 ng/L (</=54) Urine Color Light-yellow (Yellow) Urine Clarity Clear (Clear) Urine pH 5.5 (5.0-9.0) Urine Specific [place] 1.010 (1.001-1.035) Urine Protein Negative (Negative) Urine Ketones Negative (Negative) Urine Blood Negative /uL (Negative) Urine Nitrite Negative (Negative) Urine Bilirubin Negative (Negative) Urine Urobilinogen Normal mg/dL (Negative) Urine Leukocyte Esterase Negative /uL (Negative) Urine RBC None seen /hpf (0 - 3) Urine Microscopic WBC < 1 /HPF (0-3) Urine Squamous Epithelial Cells None seen /hpf (<5) Urine Bacteria None seen /hpf (None Seen) Urine Hyaline Casts Few /lpf (0 - 2) Urine Glucose Normal mg/dL (Normal) B-Type Natriuretic Peptide 176.31 pg/mL (0-100) Other Laboratory Tests 12/30/24 06:12 Brief Hx & Hospital Course: 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 Once sitting down he asked his help to get him some thing to drink. While waiting to get his drink he started to syncopized and was witnessed to be in and out of consciousness for approximately 10 minutes. EMS was called and on arrival found patient to be pale, cyanotic, bradycardic, hypotensive with systolic BP in 80s and heart rate low 40s. Patient was given IV fluids by EMS which improved blood pressures and made him come out of syncope symptoms and was alert and oriented again. On bedside eval patient heart rate is in 60s and blood pressure is adequate. Patient is conversing without difficulty and believes he was dehydrated because of taking too much Lasix. patient given fluids in EMS and in hospital. He has improving Cr and BP. HR 50- 60s afib. he is asymptomatic and has significant improvement after fluids. cardiology consulted and would like to evaluate patient for pacemaker. patient is not amendable to this approach and wants to follow-up with his PCP. patient is at risk of fall due to possible sick sinus syndrome and unsafe for discharge. patient AOx4, understands risks and accepts all risks including . diagnosis list: Syncope due to below Symptomatic bradycardia Hypotension due to intravascular volume depletion Intravascular volume depletion sick sinus syndrome, possible, unable to ruleout TERESSA due to VMN, likely History of AFib with bradycardia, no cardiac device Chronic anticoagulation with apixaban DOAC History TAVR History CAD? Hypertension ? CHF Hypokalemia Condition at Discharge: Undetermined Discharge Disposition: AMA Discharge Statement: "Patient was advised to return to the ER or call 911 if any headaches, dizziness, shortness of breath, chest pain, abdominal pain, bleeding, fevers, or worsening of medical condition. Patient was counseled about treatment plan, medications, possible side effects, patientverbalized understanding. All questions were answered to the best of my ability. This discharge took greater then 30 minutes in planning, reviewing documentation, counseling the patient, and discussing with other team members." ASSESSMENT ASSESSMENT Assessment Date of Service: December 30, 2024 Billing Provider: LATISHA WHEATLEY MD Common Visit Codes: NOT BILLABLE LATISHA WHEATLEY MD December 30, 2024 15:18
[2024-12-30] MEDS ORDERED: LACTATED RINGER'S 1,000 ML IV ONE (20:00)
== END 2024-12-30 15:32 | disposition left against medical advice (07) | DRG 640 ==
LOC: EDBD 13:32 → ER 13:32 → OVERFLOW 16:24 → TELE-EAST 21:05
PROVIDERS: ADMIT Student in an Organized Health Care Education/Training Program; ATTEND Student in an Organized Health Care Education/Training Program
DX: E86.9 Volume depletion, unspecified (principal); N17.0 Acute kidney failure with tubular necrosis; R57.1 Hypovolemic shock; I48.19 Other persistent atrial fibrillation; I95.89 Other hypotension; E86.1 Hypovolemia; R00.1 Bradycardia, unspecified; I49.5 Sick sinus syndrome; E86.0 Dehydration; I50.9 Heart failure, unspecified; I11.0 Hypertensive heart disease with heart failure; E87.6 Hypokalemia; Z53.29 Procedure and treatment not carried out because of patient's decision for other reasons; R23.0 Cyanosis; E78.5 Hyperlipidemia, unspecified; Z79.01 Long term (current) use of anticoagulants; Z95.5 Presence of coronary angioplasty implant and graft; Z79.2 Long term (current) use of antibiotics; Z79.899 Other long term (current) drug therapy; Z82.49 Family history of ischemic heart disease and other diseases of the circulatory system; Z95.2 Presence of prosthetic heart valve
CPT/HCPCS: 36415; 70450; 71045; 80053; 81001; 83880; 84484; 85025; 93005; 96360; G0378